=== PATIENT | female | born 1960 | race Caucasian/White ===

== ENCOUNTER 2017-01-07 08:06 | Outpatient (CLI) | payer BC ==
[~2017-01-07 08:06] MED LIST: CARB-64 PO; CARB1TAB15 PO; LUBI24CA5 PO; OMEP40CA33 PO; ONDA4TAB22 PO; POTA20TA83 PO
[2017-01-07 09:55] LABS: BASOPHILS % (AUTO) 0.6 % (0.0-2.0); EOSINOPHILS # (AUTO) 0.1 K/uL (0.0-0.4); EOSINOPHILS % (AUTO) 1.2 % (0.0-4.0); HEMATOCRIT 42.2 % (36-48); HEMOGLOBIN 14.1 g/dL (12.0-16.0); LYMPHOCYTES # (AUTO) 1.8 K/uL (1.0-5.5); LYMPHOCYTES % (AUTO) 39.4 % (20.5-51.5); MEAN CORPUSCULAR HEMOGLOBIN 32 pg (27-31); MEAN CORPUSCULAR HGB CONC 33 % (32-36); MEAN CORPUSCULAR VOLUME 95 fL (79.0-98.0); MONOCYTES # (AUTO) 0.3 K/uL (0.0-1.0); MONOCYTES % (AUTO) 6.1 % (1.7-9.3); NEUTROPHILS # (AUTO) 2.4 K/uL (1.8-7.7); NEUTROPHILS % (AUTO) 52.7 % (40.0-70.0); PLATELET COUNT (AUTO) 218 K/uL (130-430); RED BLOOD CELL COUNT(AUTO) 4.46 MIL/uL (4.2-6.2); RED CELL DISTRIBUTION WIDTH 12.4 % (9.0-15.0); WHITE BLOOD COUNT (AUTO) 4.6 K/uL (4.8-10.8)
[2017-01-07 10:03] LABS: ALBUMIN 4.4 g/dL (3.4-4.8); BILIRUBIN,DIRECT 0.2 mg/dL (0.0-0.3); TOTAL BILIRUBIN 0.9 mg/dL (0.0-1.0); TOTAL PROTEIN, SERUM 7.2 g/dL (6.4-8.3)
== END 2017-01-07 20:00 | disposition home or self-care (01) ==
LOC: SUS 08:06
DX: K76.9 Liver disease, unspecified (principal)
CPT/HCPCS: 36415; 76700-TC; 80076; 85025

== ENCOUNTER 2017-07-20 09:15 | Outpatient (CLI) | payer BC ==
[2017-07-20 18:02] LABS: ALBUMIN 4.1 g/dL (3.4-4.8); BILIRUBIN,DIRECT 0.2 mg/dL (0.0-0.3); TOTAL BILIRUBIN 0.9 mg/dL (0.0-1.0)
== END 2017-07-20 22:18 | disposition home or self-care (01) ==
LOC: SLB 09:15
DX: K76.89 Other specified diseases of liver (principal)
CPT/HCPCS: 36415; 76700-TC; 80076

== ENCOUNTER 2018-01-03 07:55 | Outpatient (CLI) | payer BC ==
[2018-01-03 09:16] LABS: BASOPHILS % (AUTO) 0.8 % (0.0-2.0); EOSINOPHILS # (AUTO) 0.1 K/uL (0.0-0.4); EOSINOPHILS % (AUTO) 1.1 % (0.0-4.0); HEMATOCRIT 41.7 % (36-48); LYMPHOCYTES # (AUTO) 1.7 K/uL (1.0-5.5); LYMPHOCYTES % (AUTO) 33.1 % (20.5-51.5); MEAN CORPUSCULAR HEMOGLOBIN 33 pg (27-31); MEAN CORPUSCULAR HGB CONC 34 % (32-36); MEAN CORPUSCULAR VOLUME 97 fL (79.0-98.0); MONOCYTES # (AUTO) 0.3 K/uL (0.0-1.0); MONOCYTES % (AUTO) 6.4 % (1.7-9.3); NEUTROPHILS % (AUTO) 58.6 % (40.0-70.0); PLATELET COUNT (AUTO) 218 K/uL (130-430); RED CELL DISTRIBUTION WIDTH 12.3 % (9.0-15.0); WHITE BLOOD COUNT (AUTO) 5.1 K/uL (4.8-10.8)
[2018-01-03 09:17] LABS: BILIRUBIN,URINE NEGATIVE (NEGATIVE); CLARITY/URINE CLEAR (CLEAR); GLUCOSE,URINE NEGATIVE (NEGATIVE); KETONES,URINE NEGATIVE (NEGATIVE); LEUKOCYTE ESTERASE ,URINE TRACE (NEGATIVE); NITRITE, URINE NEGATIVE (NEGATIVE); PROTEIN URINE NEGATIVE (NEGATIVE); UROBILINOGEN,URINE 0.2 (0.2-1.0)
[2018-01-03 09:33] LABS: BLOOD, URINE TRACE (NEGATIVE); COLOR,URINE ORANGE (YELLOW)
[2018-01-03 09:54] LABS: BACTERIA,URINE FEW /HPF (None Seen); RBC,URINE 0-3 /HPF (0-3); WBC,URINE 0-3 /HPF (0-3)
[2018-01-03 09:55] LABS: MUCUS,URINE None Seen /LPF (None Seen)
[2018-01-03 09:58] LABS: ALANINE AMINOTRANSFERASE 16 U/L (12-78); ALBUMIN 4.4 g/dL (3.4-4.8); ANION GAP 6 (5-15); ASPARTATE AMINOTRANSFERASE 18 U/L (10-37); CALCIUM 9.2 mg/dL (8.4-11.0); CHLORIDE 105 mmol/L (98-107); CHOLESTEROL 223 mg/dL (<200); CREATININE 0.86 mg/dL (0.55-1.30); FREE T4 (FREE THYROXINE) 0.7 ng/dL (0.6-1.6); GFR AFRICAN AMERICAN 88 mL/min (>90); GLUCOSE 92 mg/dL (70-99); HDL CHOLESTEROL 96 mg/dL (>55); LDL CHOLESTEROL 122 mg/dL (<100); POTASSIUM 3.8 mmol/L (3.5-5.1); SODIUM SERUM 139 mmol/L (136-145); THYROID STIMULATING HORMONE 2.11 uIu/mL (0.34-4.82); TRIGLYCERIDES 51 mg/dL (30-150); UREA NITROGEN, BLOOD 12 mg/dL (8-21)
[2018-01-03 10:03] LABS: ERYTHROCYTE SEDIMENTATION RATE 5 MM/HR (0-20)
[2018-01-03 10:06] LABS: C-REACTIVE PROTEIN QUANT < 0.2 mg/dL (0-0.5)
[2018-01-04 07:23] LABS: HEMOGLOBIN A1C 5.4 % (4.8-5.6)
[2018-01-04 09:07] LABS: AFP, TUMOR MARKER 4.4 ng/mL (0.0-8.3); CEA 1.1 ng/mL (0.0-4.7)
== END 2018-01-03 19:16 | disposition home or self-care (01) ==
LOC: SUS 07:55
DX: D18.03 Hemangioma of intra-abdominal structures (principal); K76.89 Other specified diseases of liver
CPT/HCPCS: 36415; 76700-TC; 80053; 80061; 81000-TC; 82105; 82306; 82378; 83036; 84439; 84443-TC; 85025; 85651-TC; 86140